=== PATIENT | male | born 2000 | race Caucasian/White ===

== ENCOUNTER 2023-02-03 22:21 | Emergency (ER) | payer MEDICAID ==
[~2023-02-03] VITALS: Ht 170.2 cm; Wt 59.0 kg
[2023-02-03 22:58] VITALS: BP 105/67
--- NOTE | 2023-02-03 23:10 | NUR ---
Pt ambulatory from home with c/o N/V and feeling "uneasy" since this am. Pt states he consumed alcohol and methamphetamine yesterday. Arrived to ED feeling anxious. Denies CP, SOB at this time. PMH: DENIES
--- NOTE | 2023-02-03 23:22 | NUR ---
Patient being evaluated by DWAIN at bedside.
[2023-02-03] MEDS ORDERED: NACL 0.9% 1,000 ML IV ONE (23:25)
[2023-02-03] MEDS ORDERED: ONDANSETRON 4 MG/2 ML VIAL IVP ONE (23:25)
[2023-02-03] MEDS ORDERED: ONDANSETRON 4 MG ODT PO ONE (23:25)
[2023-02-03] MEDS ORDERED: ONDA8TAB87 PO (23:35)
[2023-02-04 00:05] VITALS: BP 105/67
== END 2023-02-04 00:52 | disposition home or self-care (01) ==
LOC: MED 22:21
DX: R11.2 Nausea with vomiting, unspecified (principal); R42 Dizziness and giddiness; F12.90 Cannabis use, unspecified, uncomplicated; F15.90 Other stimulant use, unspecified, uncomplicated; F17.200 Nicotine dependence, unspecified, uncomplicated; Z79.899 Other long term (current) drug therapy; Z72.89 Other problems related to lifestyle
CPT/HCPCS: 96361; 96374; 99283; J2405; J7030